=== PATIENT | male | born 1980 | race Caucasian/White ===

== ENCOUNTER 2024-10-28 11:24 | Emergency (ER) | payer BC, SELFPAY ==
[2024-10-28] VITALS (8 sets, daily range): BP systolic 169–231; BP diastolic 103–145; PULSE 100–122; RESP 16–26; TEMP 36.4; O2SAT 96–99
--- NOTE | ~2024-10-28 | CT_ITS ---
EXAMINATION: CT brain wo con DATE: 10/28/2024 13:52 INDICATION: Lightheadedness TECHNIQUE: Computed tomography (CT) of the head was performed without intravenous contrast. Sagittal and coronal reconstructions were performed. The mA was adjusted according to patient size. Iterative reconstruction technique was employed. The dose-length product was 605.33 mGy-cm. COMPARISON: None FINDINGS: There are few small old lacunar infarcts peritrigonal white matter at the junction of the left tempor al, parietal and occipital lobes. There is an additional small old lacunar infarct at the head of the left caudate nucleus and adjacent anterior limb of the left internal capsule. No acute intracranial hemorrhage, acute infarction or abnormal extra axial fluid collection. There is mild scattered white matter. Ventricles are normal and symmetric. No mass/mass effect. Mild mucosal thickening the right ethmoid sinus. The orbits and mastoid air cells are normal. IMPRESSION: 1. Small old lacunar infarcts in the left peritrigonal white matter and at the left basal ganglia. 2. Mild scattered white matter hypoattenuation which is disproportionate for age. The differential di agnosis includes premature chronic small vessel ischemic disease (especially if the patient has cardi ovascular risk factors), demyelinating disease such as multiple sclerosis, drug abuse, vasculitis, or reactive astrocytosis (gliosis) secondary to nonspecific etiology. Reviewed, dictated and finalized at location A. TECH IMPRESSION: 1. Small old lacunar infarcts in the left peritrigonal white matter and at the left basal ganglia. 2. Mild scattered white matter hypoattenuation which is disproportionate for ag e. The differential diagnosis includes premature chronic small vessel ischemic disease (especially if the patient has cardiovascular risk factors), demyelinat ing disease such as multiple sclerosis, drug abuse, vasculitis, or reactive ast rocytosis (gliosis) secondary to nonspecific etiology.
--- NOTE | 2024-10-28 13:34 | ECG_ITS ---
Test Date: 2024-10-28 13:39:52 Measurements Intervals Ethel Rate: 101 P: 13 SC: 215 QRS: -31 QRSD: 100 T: 48 QT: 355 QTc: 460 Interpretive Statements SINUS TACHYCARDIA WITH FIRST DEGREE AV BLOCK LEFT AXIS DEVIATION DELAYED PRECORDIAL R/S TRANSITION MINIMAL Q WAVES- INFERIOR LEADS BASELINE WANDER- II, III, AVR, AVL, AVF BORDERLINE ECG No previous ECG available for comparison Electronically Signed On 10-28-2024 13:42:00 CLASSIFIED COPY CONTROL CLERK by True Graham D.O.
[2024-10-28 13:53] LABS: Basophils Absolute Auto 0.1 K/mm3 (0.0-0.1); Basophils Percent Auto 0.7 % (0.2-1.2); Eosinophils Percent Auto 0.1 % (0-4.4); Hematocrit 48.1 % (42.0-52.0); Immature Granulocyte Absolute 0.03 K/mm3 (0.00-0.031); Immature Granulocyte Percent A 0.4 % (0-0.5); Lymphocytes Absolute Auto 1.62 K/mm3 (0.9-3.2); Mean Corpuscular HGB Conc 35.3 g/dl (32-36); Mean Corpuscular Hemoglobin 31.1 pg (26-34); Mean Corpuscular Volume 88.1 fl (80-100); Monocytes Absolute Auto 0.5 K/mm3 (0.1-0.6); Monocytes Percent Auto 7.2 % (2.6-8.5); Neutrophils Absolute Auto 5.1 K/mm3 (1.3-6.7); Neutrophils Percent Auto 69.6 % (45.5-73.1); Platelet Count Result 268 k/mm3 (150-375); Red Blood Count 5.46 M/mm3 (4.6-6.20); Red Cell Distribution Width 12.4 % (11.5-14.5); White Blood Count 7.4 K/mm3 (4.5-10.0)
[2024-10-28 14:02] LABS: Alanine Aminotransferase 25 U/L (6-50); Albumin Level 4.9 g/dL (3.5-5.1); Alkaline Phosphatase 73 U/L (38-126); Anion Gap 14 mmol/L (4-12); Aspartate Amino Transferase 28 U/L (17-59); Bilirubin,Total 1.4 mg/dL (0.2-1.3); Blood Urea Nitrogen 20 mg/dL (9-20); Calcium 9.5 mg/dL (8.4-10.2); Carbon Dioxide 26 mmol/L (22-30); Chloride 103 mmol/L (98-107); Estimated CRCL calculation 71 ml/min; Estimated Glomerular Filt Rate > 60; Glucose 111 mg/dL (65-110); Magnesium 2.4 mg/dL (1.6-2.3); Potassium 3.8 mmol/L (3.4-5.0); Sodium 143 mmol/L (137-145)
[2024-10-28 14:11] LABS: Prothrombin Time 13.2 Seconds (11.1-14.7)
[2024-10-28 14:12] LABS: Partial Thromboplastin Time 23.5 Seconds (22.3-36.8)
[2024-10-28 14:14] LABS: Troponin I 0.016 ng/mL (0.000-0.034)
[2024-10-28 14:25] LABS: Add Urine Microscopic? YES; Appearance Urine Clear (Clear); Bacteria Urine None Seen /hpf; Bilirubin Urine Negative (Negative); Blood Urine Negative (Negative); Color Urine Yellow (Yellow); Glucose Urine UA Negative (Negative); Ketones Urine 1+ mg/dL (Negative); Leukocyte Esterase Ur Negative LEU/UL (Negative); Nitrate Urine Negative (Negative); Non Pathogenic Casts 0-2; Protein Urine 1+ mg/dL (Negative); RBC Urine 0-2 /hpf (0-2); Specific Grav Ur 1.016 (1.001-1.035); Squamous Epithelial Cell Urine None Seen /hpf (Few); Urobilinogen Urine 0.2 mg/dL (<2.0); WBC Urine 0-5 /hpf (0-3); pH Urine 5.5 (5.0-9.0)
[2024-10-28 14:28] LABS: Influenza A QL RT-PCR Negative (Negative); Influenza B QL RT-PCR Negative (Negative); RSV RNA, RT-PCR Negative (Negative); SARS-CoV-2 RNA PCR Negative (Negative)
[2024-10-28] MEDS: hydrALAZINE HCL 20 MG/ML VIAL 10 MG IV PUSH (14:29)
[2024-10-28 14:42] LABS: Amphetamine Screen Urine Negative (Negative); Barbiturate Screen Urine Negative (Negative); Benzodiazepines Screen Urine Negative (Negative); Cannabinoid Screen Urine Negative (Negative); Cocaine Screen Urine Negative (Negative); Methadone Screen Urine Negative (Negative); Opiate Screen Urine Negative (Negative); Phencyclidine Screen Urine Negative (Negative)
[2024-10-28] MEDS: hydrALAZINE HCL 20 MG/ML VIAL IV PUSH (15:17)
--- OUTSIDE RECORDS SUMMARY | 2024-10-28 15:24 | XMS_ITS | Clinical Summary ---
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 Gender Identity Not on file Sexual Orientation Not on file Last Filed Vital Signs Vital Sign Reading Time Taken Comments Blood Pressure 212/149 08/28/2020 5:03 PM ROLLOFF DRIVER Pulse 125 08/28/2020 5:03 PM [employer]LLOFF DRIVER Temperature 37.2 C (99 F) 08/28/2020 4:37 PM ROLLOFF DRIVER Respiratory Rate 30 08/28/2020 5:03 PM ROLLOFF DRIVER Oxygen Saturation 99% 08/28/2020 4:37 PM ROLLOFF DRIVER Inhaled Oxygen Concentration - - Weight 81.6 kg (180 lb) 08/28/2020 4:37 PM ROLLOFF DRIVER Height 175.3 cm (5' 9 ) 08/28/2020 4:37 PM ROLLOFF DRIVER Body Mass Index 26.58 08/28/2020 4:37 PM ROLLOFF DRIVER Plan of Treatment Health Maintenance Due Date Last Done Comments DTAP/TDAP/TD VACCINES (1 - Tdap) 1997 HEPATITIS B VACCINES (1 of 3 - 19+ 3-dose series) 1997 COLORECTAL SCREENING 12/10/2023 Colorectal Cancer Screening 12/10/2023 FIT-DNA Q 3 years 12/10/2023 FIT/FOBT Q 1 year 12/10/2023 Flex Sig/CT Colonography Q 5 years 12/10/2023 INFLUENZA VACCINE (#1) 2024 HPV VACCINES Aged Out No longer eligi ble based on patient's age to complete this topic PNEUMOCOCCAL VACCINE 0-64 YEARS Aged Out No longer eligible based on patient's age to complete this topic Insurance [address] [place] [id number] [facility]
[2024-10-28] MEDS: lisinopriL 10 MG TABLET PO (16:04)
--- NOTE | 2024-10-28 16:26 | ED_ITS ---
HPI - General Adult General Chief complaint: Dizziness Stated complaint: lightheaded Time Seen by Provider: 10/28/24 14:19 History of Present Illness HPI narrative: patient is a 43-year-old gentleman who presents emergency department with chief complaint of high blood pressure and lightheadedness. The patient reports that since Saturday he has been feeling lightheaded and just not feeling his usual self the patient denies chest pain denies focal neurological deficit denies changes in mental status patient reports that he has not checked his blood pressure years and does not currently have a primary care provider Related Data Allergies Allergy/AdvReac Type Severity Reaction Status Date / Time No Known Allergies Allergy Unverified 01/26/14 14:12 Review of Systems 2 Review of Systems: A 10 system review of systems was completed on the patient and is negative except for what is stated in the HPI. Nursing and ancillary documentation was reviewed. Exam 2 Narrative: GENERAL: Well-appearing, well-nourished, and in no acute distress. HEAD: Normocephalic, atraumatic. EYES: PERRLA and EOMI. ENT: Nares clear, no rhinorrhea or epistaxis. Mucous membranes moist. NECK: Supple. CHEST: Clear to auscultation. No respiratory distress. HEART: Regular rate and rhythm. No murmur heard. Normal peripheral pulses. ABDOMEN: Soft, nontender, nondistended, normal active bowel sounds. EXTREMITIES: Normal range of motion. No edema. SKIN: Warm, dry, no rash. NEURO: No focal deficits. Alert and oriented x3. PSYCH: Normal mood and affect. Course Vital Signs Vital signs: Vital Signs Temperature 36.4 C 10/28/24 11:30 Pulse Rate 119 H 10/28/24 11:30 Respiratory Rate 16 10/28/24 11:30 Blood Pressure 221/145 H 10/28/24 11:30 Pulse Oximetry 99 10/28/24 11:30 Temperature 36.4 C 10/28/24 11:30 Pulse Rate 119 H 10/28/24 11:30 Respiratory Rate 16 10/28/24 11:30 Blood Pressure 221/145 H 10/28/24 11:30 Pulse Oximetry 99 10/28/24 11:30 Medical Decision Making [facility] Narrative Medical decision making narrative: differential diagnosis includes hypertensive urgency, hypertensive crisis, electrolyte abnormality, EKG showed no acute ischemic changes CT head showed no acute findings COVID flu RSV are negative tox screen was negative the patient for pressure was improved with a combination of hydralazine and lisinopril. Patient's blood pressures come down to 184/101 the patient be started on lisinopril Vital Signs Vital Signs: Vital Signs Temperature 36.4 C 10/28/24 11:30 Pulse Rate 119 H 10/28/24 11:30 Respiratory Rate 16 10/28/24 11:30 Blood Pressure 221/145 H 10/28/24 11:30 Pulse Oximetry 99 10/28/24 11:30 Temperature 36.4 C 10/28/24 11:30 Pulse Rate 119 H 10/28/24 11:30 Respiratory Rate 16 10/28/24 11:30 Blood Pressure 221/145 H 10/28/24 11:30 Pulse Oximetry 99 10/28/24 11:30 Lab Data 10/28/24 13:46 10/28/24 13:46 Labs: Lab Results 10/28/24 10/28/24 Range/Units 13:46 14:14 WBC 7.4 (4.5-10.0) K/mm3 RBC 5.46 (4.6-6.20) M/mm3 Hgb 17.0 (14.0-18.0) g/dL Hct 48.1 (42.0-52.0) % MCV 88.1 (80-100) fl MCH 31.1 (26-34) pg MCHC 35.3 (32-36) g/dl RDW 12.4 (11.5-14.5) % Plt Count 268 (150-375) k/mm3 MPV 10.0 (7.4-10.4) fl Immature Gran % (Auto) 0.4 (0-0.5) % Neut % (Auto) 69.6 (45.5-73.1) % Lymph % (Auto) 22.0 (18.3-44.2) % [place] % (Auto) 7.2 (2.6-8.5) % Eos % (Auto) 0.1 (0-4.4) % Baso % (Auto) 0.7 (0.2-1.2) % Lymph # (Auto) 1.62 (0.9-3.2) K/mm3 [place] # (Auto) 0.5 (0.1-0.6) K/mm3 Eos # (Auto) 0.0 (0-0.3) K/mm3 Baso # (Auto) 0.1 (0.0-0.1) K/mm3 Abs Immat Gran (auto) 0.03 (0.00-0.031) K/mm3 Absolute Neuts (auto) 5.1 (1.3-6.7) K/mm3 Absolute Nucleated RBC 0.000 (0.0-0.012) K/mm3 Nucleated RBC % 0.0 (0.0-0.2) % PT 13.2 (11.1-14.7) Seconds INR 1.0 APTT 23.5 (22.3-36.8) Seconds Sodium 143 (137-145) mmol/L Potassium 3.8 (3.4-5.0) mmol/L Chloride 103 (98-107) mmol/L Carbon Dioxide 26 (22-30) mmol/L Anion Gap 14 H (4-12) mmol/L BUN 20 (9-20) mg/dL Creatinine 1.17 (0.7-1.3) mg/dL Estim Creat Clear Calc 71 ml/min Estimated GFR > 60 (59 - ) Glucose 111 H (65-110) mg/dL Calcium 9.5 (8.4-10.2) mg/dL Magnesium 2.4 H (1.6-2.3) mg/dL Total Bilirubin 1.4 H (0.2-1.3) mg/dL AST 28 (17-59) U/L ALT 25 (6-50) U/L Alkaline Phosphatase 73 (38-126) U/L Troponin I 0.016 (0.000-0.034) ng/mL Total Protein 8.0 (6.3-8.2) g/dL Albumin 4.9 (3.5-5.1) g/dL TSH (Reflex) 1.710 (0.465-4.68) uIU/mL Urine Color Yellow (Yellow) Urine Appearance Clear (Clear) Urine pH 5.5 (5.0-9.0) Ur Specific [place] 1.016 (1.001-1.035) Urine Protein 1+ H (Negative) mg/dL Urine Glucose (UA) Negative (Negative) mg/dL Urine Ketones 1+ H (Negative) mg/dL Ur Blood (Man) Negative (Negative) Urine Nitrate Negative (Negative) Urine Bilirubin Negative (Negative) Urine Urobilinogen 0.2 (<2.0) mg/dL Leukocyte Esterase Rfl Negative (Negative) CARMEN/UL Urine RBC 0-2 (0-2) /hpf Urine WBC 0-5 (0-3) /hpf Ur Squamous Epith Cells None seen (Few) /hpf Urine Bacteria None seen /hpf Urine Casts 0-2 Urine Opiates Screen Negative (Negative) Urine Methadone Screen Negative (Negative) Ur Barbiturates Screen Negative (Negative) Ur Phencyclidine Scrn Negative (Negative) Ur Amphetamine Screen Negative (Negative) U Benzodiazepines Scrn Negative (Negative) Urine Cocaine Screen Negative (Negative) U Cannabinoids Screen Negative (Negative) Influenza A (RT-PCR) Negative (Negative) Influenza B (RT-PCR) Negative (Negative) RSV (RT-PCR) Negative (Negative) SARS-CoV-2 RNA (RT-PCR) Negative (Negative) Discharge Plan Discharge Clinical Impression: Hypertension Patient Disposition: Home, Self-Care Condition: Stable Instructions: Antibiotic Form, Hypertensive Crisis (ED), Hypertension (ED) Additional Instructions: it is recommended that he keep a daily tract your blood pressure. Please follow-up with primary care as soon as possible if he develops severe headache chest pain shortness of breath weakness in your arms or legs confusion or any symptoms the your concerned of please return to the emergency department for re- evaluation Patient Language: Yoruba Prescriptions: New lisinopril 10 mg tablet 10 mg PO DAILY Qty: 30 1RF Follow-up/Referrals: PHYSICIAN,HEALTH COUNSELOR [Primary Care Provider] - Reggie Yung MD [Physician] - Time of Disposition: 16:30
[2024-10-28 16:56] LABS: Troponin I 0.019 ng/mL (0.000-0.034)
== END 2024-10-28 17:30 | disposition home or self-care (01) ==
PROVIDERS: Registered Nurse; Emergency Provider Emergency Medicine
DX: I10 Essential (primary) hypertension (principal); Z20.822 Contact with and (suspected) exposure to COVID-19
CPT/HCPCS: 36415; 70450; 80053; 80307; 81001; 83735; 84443; 84484; 85025; 85610; 85730; 87637; 93005; 96374; 96376; 99284; A9270; J0360